=== PATIENT | male | born 1975 | race Caucasian/White ===

== ENCOUNTER 2019-05-16 11:34 | Inpatient (IN) ==
[2019-05-16] MEDS ORDERED: METHOCARBAMOL 750 MG TABLET PO PRN (12:55)
[2019-05-16] MEDS ORDERED: DICYCLOMINE 10 MG CAPSULE PO PRN (12:55)
[2019-05-16] MEDS: BUPRENORPHINE SL TAB 2 MG TABLET SL SCH ×2 (13:30→21:44)
[2019-05-16] MEDS: SODIUM CHLORIDE 0.9% 1,000 ML IV SCH (13:31)
[2019-05-16 14:14] LABS: Basophils # 0.1 10*3/uL (0.0-0.2); Basophils % 0.8 % (0.0-0.8); Eosinophils # 0.1 10*3/uL (0.0-0.87); Eosinophils % 1.5 % (0.00-10.9); Hemoglobin 13.4 GM/DL (14.0-18.0); Immature Granulocytes % 0.6 %; Immature Granulocytes Absolute 0.05 #; Lymphocytes # 2.1 10*3/uL (1.4-4.0); Lymphocytes % 26.3 % (21.2-54.2); Mean Corpuscular HGB Conc 31.9 GM/DL (32-36); Mean Corpuscular Volume 93.1 FL (87-102); Mean Platelet Volume 11.5 FL (9.6-12.0); Monocytes % 6.4 % (1.7-12.7); Neutrophils % 64.4 % (38.7-73.9); Platelet Count 217 T/CUMM (130-400); Red Blood Count 4.51 MC/CUMM (3.8-5.5); Red Cell Distribution Width 13.4 % (9.3-17.3)
[2019-05-16 14:48] LABS: Albumin 3.3 G/DL (3.4-5.0); Bilirubin,Total 0.6 MG/DL (0.2-1.0); Calcium 8.9 MG/DL (8.5-10.1); Osmolality,Calculated 279.3 MOS/KG (273-304); Total Protein 7.4 G/DL (6.4-8.3)
[2019-05-16] MEDS ORDERED: ACETAMINOPHEN 500 MG TABLET PO PRN (15:23)
[2019-05-16] MEDS: NICOTINE 21 MG/24 HR PATCH TRANSDERM SCH (16:30)
[2019-05-16] MEDS: GABAPENTIN 400 MG CAPSULE PO SCH ×2 (16:30→21:44)
[2019-05-16 17:16] LABS: Apearance,Urine Slightly Hazy (Clear); Bacteria,Urine Many /HPF (Few); Bilirubin,Urine Negative (Negative); Blood, Urine Small mg/dL (Negative); Glucose,Urine (UA) Negative (Negative); Ketones,Urine Negative (Negative); Mucus,Urine Occasional /LPF (Occasional); Nitrite,Urine Positive (Negative); Protein,Urine Negative; RBC,Urine 3 /HPF (0-4); Squamous Epithelial Cell,Urine Occasional /HPF (0-10); Urine Color Yellow (Yellow); WBC,Urine 22 /HPF (0-6)
[2019-05-16] MEDS: ENOXAPARIN 40 MG/0.4 ML SYRINGE SUBCUT SCH (21:45)
[2019-05-16] MEDS: BACLOFEN 20 MG TABLET PO SCH (21:45)
[2019-05-16] MEDS: levETIRAcetam 500 MG TABLET PO SCH (21:45)
[2019-05-16] MEDS: cefTRIAXone 2,000 MG in SYRINGE 1 EACH IV SCH (21:46)
[2019-05-16 21:54] LABS: Barbiturates Screen,Urine Negative (Negative); Benzodiazepines Screen,Urine Negative (Negative); Cannabinoid Screen,Urine Positive (Negative); Opiate Screen,Urine Positive (Negative); Phencyclidine Screen,Urine Negative (Negative)
[2019-05-17] MEDS: cloNIDine 0.1 MG TABLET PO PRN ×4 (00:45→20:07)
[2019-05-17] MEDS: HydrOXYzine PAMOATE 25 MG CAPSULE PO PRN ×2 (00:45→19:02)
[2019-05-17] MEDS ORDERED: LORazepam 2 MG/1 ML VIAL IM ONE (00:56)
[2019-05-17] MEDS ORDERED: LORazepam 2 MG/1 ML VIAL IV ONE (01:30)
[2019-05-17] MEDS: SODIUM CHLORIDE 0.9% 1,000 ML IV SCH ×2 (05:13→17:22)
[2019-05-17] MEDS: BUPRENORPHINE SL TAB 2 MG TABLET SL SCH ×3 (06:20→20:06)
[2019-05-17] MEDS ORDERED: chlordiazePOXIDE 25 MG CAPSULE PO PRN (12:56)
[2019-05-17] MEDS: levETIRAcetam 500 MG TABLET PO SCH ×2 (13:08→22:52)
[2019-05-17] MEDS: GABAPENTIN 400 MG CAPSULE PO SCH ×4 (13:09→20:07)
[2019-05-17] MEDS: NICOTINE 21 MG/24 HR PATCH TRANSDERM SCH (13:10)
[2019-05-17] MEDS: LIDOCAINE 5% PATCH TRANSDERM SCH (13:19)
[2019-05-17] MEDS: BACLOFEN 20 MG TABLET PO SCH ×3 (13:35→20:08)
[2019-05-17] MEDS: cefTRIAXone 2,000 MG in SYRINGE 1 EACH IV SCH (18:18)
[2019-05-17] MEDS: ENOXAPARIN 40 MG/0.4 ML SYRINGE SUBCUT SCH (22:52)
[2019-05-18] MEDS: BUPRENORPHINE SL TAB 2 MG TABLET SL SCH ×2 (06:25→16:20)
[2019-05-18] MEDS: levETIRAcetam 500 MG TABLET PO SCH ×3 (09:30→20:55)
[2019-05-18] MEDS: SODIUM CHLORIDE 0.9% 1,000 ML IV SCH ×2 (09:30→19:45)
[2019-05-18] MEDS: GABAPENTIN 400 MG CAPSULE PO SCH ×2 (09:30→16:18)
[2019-05-18] MEDS: NICOTINE 21 MG/24 HR PATCH TRANSDERM SCH (09:30)
[2019-05-18] MEDS: BACLOFEN 20 MG TABLET PO SCH ×2 (09:30→16:18)
[2019-05-18] MEDS ORDERED: GABAPENTIN 400 MG CAPSULE PO PRN (12:04)
[2019-05-18] MEDS ORDERED: BACLOFEN 20 MG TABLET PO PRN (12:04)
[2019-05-18] MEDS: LIDOCAINE 5% PATCH TRANSDERM SCH (16:17)
[2019-05-18] MEDS: cefTRIAXone 2,000 MG in SYRINGE 1 EACH IV SCH (17:41)
[2019-05-18] MEDS: ENOXAPARIN 40 MG/0.4 ML SYRINGE SUBCUT SCH ×2 (20:55→20:59)
[2019-05-19] MEDS: BUPRENORPHINE SL TAB 2 MG TABLET SL SCH ×3 (04:16→20:57)
[2019-05-19 05:02] LABS: Basophils # 0.1 10*3/uL (0.0-0.2); Basophils % 0.8 % (0.0-0.8); Eosinophils # 0.1 10*3/uL (0.0-0.87); Eosinophils % 2.2 % (0.00-10.9); Hematocrit 43.2 VOL% (42.0-52.0); Hemoglobin 13.6 GM/DL (14.0-18.0); Immature Granulocytes Absolute 0.06 #; Lymphocytes # 2.1 10*3/uL (1.4-4.0); Lymphocytes % 35.5 % (21.2-54.2); Mean Corpuscular HGB Conc 31.5 GM/DL (32-36); Mean Corpuscular Volume 95.2 FL (87-102); Mean Platelet Volume 11.8 FL (9.6-12.0); Monocytes % 9.8 % (1.7-12.7); Neutrophils % 50.7 % (38.7-73.9); Platelet Count 192 T/CUMM (130-400); Red Blood Count 4.54 MC/CUMM (3.8-5.5); Red Cell Distribution Width 13.8 % (9.3-17.3); White Blood Count 5.9 T/CUMM (4-12)
[2019-05-19 05:25] LABS: Calcium 8.4 MG/DL (8.5-10.1); Osmolality,Calculated 284.8 MOS/KG (273-304)
[2019-05-19] MEDS: levETIRAcetam 500 MG TABLET PO SCH ×2 (09:04→20:57)
[2019-05-19] MEDS: NICOTINE 21 MG/24 HR PATCH TRANSDERM SCH (09:04)
[2019-05-19] MEDS: LIDOCAINE 5% PATCH TRANSDERM SCH (09:04)
[2019-05-19] MEDS: SODIUM CHLORIDE 0.9% 1,000 ML IV SCH ×2 (09:08→21:00)
[2019-05-19] MEDS: cloNIDine 0.1 MG TABLET PO PRN (14:48)
[2019-05-19] MEDS: cefTRIAXone 2,000 MG in SYRINGE 1 EACH IV SCH (17:05)
[2019-05-19] MEDS: ENOXAPARIN 40 MG/0.4 ML SYRINGE SUBCUT SCH (20:54)
[2019-05-20] MEDS: levETIRAcetam 500 MG TABLET PO SCH ×2 (09:16→21:39)
[2019-05-20] MEDS: BUPRENORPHINE SL TAB 2 MG TABLET SL SCH (09:16)
[2019-05-20] MEDS: NICOTINE 21 MG/24 HR PATCH TRANSDERM SCH (10:33)
[2019-05-20] MEDS: LIDOCAINE 5% PATCH TRANSDERM SCH (10:33)
[2019-05-20] MEDS ORDERED: NORTRIPTYLINE 25 MG CAPSULE PO SCH (21:00)
[2019-05-20] MEDS: ENOXAPARIN 40 MG/0.4 ML SYRINGE SUBCUT SCH (21:06)
[2019-05-20] MEDS: cefTRIAXone 2,000 MG in SYRINGE 1 EACH IV SCH (21:39)
[2019-05-21] MEDS: levETIRAcetam 500 MG TABLET PO SCH (09:25)
[2019-05-21] MEDS: NICOTINE 21 MG/24 HR PATCH TRANSDERM SCH (09:26)
[2019-05-21] MEDS: LIDOCAINE 5% PATCH TRANSDERM SCH (09:27)
[2019-05-21 12:08] VITALS: BP 126/82
== END 2019-05-21 16:25 | disposition home or self-care (01) | DRG 772 ==
LOC: N.4E 11:40
PROVIDERS: ADMIT Hospitalist; ATTEND Hospitalist

== ENCOUNTER 2019-10-03 15:06 | Inpatient (IN) ==
[2019-10-03] MEDS ORDERED: ACETAMINOPHEN 325 MG TABLET PO PRN (15:56)
[2019-10-03] MEDS ORDERED: ONDANSETRON 4 MG/2 ML VIAL IV PRN (15:56)
[2019-10-03] MEDS ORDERED: METHOCARBAMOL 750 MG TABLET PO PRN (15:59)
[2019-10-03 16:43] LABS: Basophils % 0.5 % (0.0-0.8); Eosinophils # 0.2 10*3/uL (0.0-0.87); Eosinophils % 2.3 % (0.00-10.9); Hematocrit 41.4 VOL% (42.0-52.0); Hemoglobin 12.7 GM/DL (14.0-18.0); Immature Granulocytes % 0.4 %; Immature Granulocytes Absolute 0.03 #; Lymphocytes # 2.4 10*3/uL (1.4-4.0); Lymphocytes % 32.2 % (21.2-54.2); Mean Corpuscular HGB Conc 30.7 GM/DL (32-36); Mean Corpuscular Volume 96.7 FL (87-102); Mean Platelet Volume 11.8 FL (9.6-12.0); Monocytes % 10.6 % (1.7-12.7); Platelet Count 185 T/CUMM (130-400); Red Blood Count 4.28 MC/CUMM (3.8-5.5); Red Cell Distribution Width 13.3 % (9.3-17.3); White Blood Count 7.4 T/CUMM (4-12)
[2019-10-03 16:50] LABS: Calcium 8.6 MG/DL (8.5-10.1)
[2019-10-03] MEDS: chlordiazePOXIDE 25 MG CAPSULE PO SCH ×2 (17:50→21:09)
[2019-10-03] MEDS: ENOXAPARIN 40 MG/0.4 ML SYRINGE SUBCUT SCH (21:09)
[2019-10-04] MEDS: chlordiazePOXIDE 25 MG CAPSULE PO SCH ×4 (00:10→11:05)
[2019-10-04] MEDS: PANTOPRAZOLE 40 MG TABLET PO SCH (08:43)
[2019-10-04] MEDS: BUPRENORPHINE SL TAB 2 MG TABLET SL SCH ×2 (11:05→17:39)
[2019-10-04] MEDS: HydrOXYzine PAMOATE 25 MG CAPSULE PO PRN (11:06)
[2019-10-04] MEDS: ENOXAPARIN 40 MG/0.4 ML SYRINGE SUBCUT SCH (21:51)
[2019-10-05] MEDS: BUPRENORPHINE SL TAB 2 MG TABLET SL SCH ×3 (01:11→21:25)
[2019-10-05] MEDS: PANTOPRAZOLE 40 MG TABLET PO SCH (10:34)
[2019-10-05] MEDS: HydrOXYzine PAMOATE 25 MG CAPSULE PO PRN ×2 (13:19→20:37)
[2019-10-05] MEDS: ENOXAPARIN 40 MG/0.4 ML SYRINGE SUBCUT SCH (20:28)
[2019-10-06] MEDS: PANTOPRAZOLE 40 MG TABLET PO SCH (08:46)
[2019-10-06] MEDS: GABAPENTIN 400 MG CAPSULE PO SCH ×2 (15:10→21:15)
[2019-10-06] MEDS: ENOXAPARIN 40 MG/0.4 ML SYRINGE SUBCUT SCH (21:15)
[2019-10-07] MEDS: HydrOXYzine PAMOATE 25 MG CAPSULE PO PRN (00:10)
[2019-10-07] MEDS: GABAPENTIN 400 MG CAPSULE PO SCH ×4 (08:07→20:09)
[2019-10-07] MEDS: PANTOPRAZOLE 40 MG TABLET PO SCH (08:07)
[2019-10-07] MEDS: ENOXAPARIN 40 MG/0.4 ML SYRINGE SUBCUT SCH (20:08)
[2019-10-08] MEDS: PANTOPRAZOLE 40 MG TABLET PO SCH (08:19)
[2019-10-08] MEDS: GABAPENTIN 400 MG CAPSULE PO SCH ×2 (08:19→12:55)
[2019-10-08 12:21] VITALS: BP 138/66
[2019-10-08] MEDS ORDERED: ACETAMINOPHEN 500 MG TABLET PO PRN (15:49)
[2019-10-08] MEDS ORDERED: NORTRIPTYLINE 25 MG CAPSULE PO SCH (21:00)
== END 2019-10-08 16:11 | disposition home or self-care (01) | DRG 772 ==
LOC: N.4E 15:19 → SUATTDRO 15:19 → N.ICU 10-05 22:46
PROVIDERS: ADMIT Internal Medicine; ATTEND Internal Medicine Nephrology